=== PATIENT | male | born 1955 | race Caucasian/White ===

== ENCOUNTER 2019-04-02 08:51 | Emergency (ER) | payer MEDICARE, OTHER, SELFPAY ==
[2019-04-02 09:01] VITALS: BP 169/107; PULSE 90; RESP 24; TEMP 36.3; O2SAT 95; BMI 32.1
--- NOTE | 2019-04-02 09:01 | DI.RAD.S_ITS ---
PROCEDURE: XR RIBS RT MIN 3V W CXR 1V INDICATIONS: pain TECHNIQUE: 2 views of the right ribs were acquired, along with a single view chest. COMPARISON: [facility], , CHEST 2 VIEW, 01/02/2017, 11:09. FINDINGS: Surgical changes and devices: None. Bones and chest wall: No displaced right rib fractures or dislocations. No suspicious bony lesions. Overlying soft tissues appear unremarkable. Lungs and pleura: Interstitial prominence is identified within the lung bases, which is similar to the previous examination (left greater than right). No effusion or definite pneumothorax is appreciated.. Mediastinum: Mediastinal contours appear normal. Heart size is normal. IMPRESSION: 1. No displaced right rib fractures. 2. Bibasilar interstitial prominence may represent chronic interstitial changes. Superimposed atypical pneumonia versus pulmonary edema is unable to be excluded. Dictated by: Ayo Arellano M.D. on 04/02/2019 at 8:25 Approved by: Ayo Arellano M.D. on 04/02/2019 at 8:26
--- NOTE | 2019-04-02 09:16 | ED_ITS ---
HPI - General Adult General Chief complaint: Shortness of Breath/Dyspnea Stated complaint: fell a week ago Time Seen by Provider: 04/02/19 09:04 Source: patient Mode of arrival: Ambulatory Limitations: no limitations History of Present Illness HPI narrative: 63-year-old male here for evaluation of right lateral/anterior chest wall pain. Patient states that approximately 1 week ago he was climbing over a 1st story deck railing when he states that he lost his footing falling on his right side. Did not hit his head. Had pain immediately afterwards. Since then has had increasing pain in his right chest wall. Has been doing Tylenol and ibuprofen at home without any improvement. Worse with palpation worse with deep breath. Related Data Home Medications Medication Instructions Recorded Confirmed [refugio pond] #0 11/05/16 ascorbic acid (vitamin C) 1,000 mg PO QDAY #0 11/05/16 cyanocobalamin (vitamin B-12) 1,000 mcg PO #0 11/05/16 ibuprofen 200 mg PO PRN #0 11/05/16 Previous Rx's Medication Instructions Recorded betamethasone dipropionate 1 ju TOPICAL BID #60 gm 11/05/16 clotrimazole 1 gm TOPICAL BID #30 gm 11/05/16 tramadol [Ultram] 50 mg PO Q6H PRN #14 tab 04/02/19 Allergies Allergy/AdvReac Type Severity Reaction Status Date / Time codeine [CODEINE] Allergy Intermediate NAUSEA Verified 04/02/19 09:01 Review of Systems Constitutional Constitutional: Denies fever(s) and Denies headache(s) ENT Ears, Nose, Mouth, and Throat: Denies vertigo, Denies dizziness and Denies headache(s) Cardiovascular Cardiovascular: Reports chest pain (Right chest wall) and Denies dyspnea Respiratory Respiratory: Denies dyspnea Gastrointestinal Gastrointestinal: Denies abdominal pain, Denies nausea and Denies vomiting Musculoskeletal Comments: Right chest wall pain no right shoulder pain Integumentary/Breasts Skin/Breast: Denies lesions and Denies rash Neurologic Neurologic: Denies vertigo, Denies dizziness and Denies headache(s) Hematologic/Lymphatic Hematologic/Lymphatic: Denies easy bleeding and Denies easy bruising [facility] Medical History Patient denies medical problems (Acute) Social History lives independently: Yes Social History lives independently: Yes Exam Initial Vital Signs Initial Vital Signs: Vital Signs Temperature 97.4 F L 04/02/19 09:01 Pulse Rate 90 04/02/19 09:01 Respiratory Rate 24 04/02/19 09:01 Blood Pressure 169/107 H 04/02/19 09:01 Pulse Oximetry 95 04/02/19 09:01 Const General: cooperative, well developed and well groomed Orientation: alert, awake and oriented x3 Chest Other: Tenderness to palpation right-sided lower anterior axillary line radiating around to the front right under the right nipple line. Resp Effort & Inspection: normal respiratory effort Auscultation: clear to auscultation bilaterally Cardio Rate: regular rate Rhythm: regular rhythm Skin Lesions: no lesions Rashes: no rashes Neuro General: alert, awake and oriented x3 Cognition: normal cognition Speech: speech normal Gait: normal gait Extrem General: normal to inspection and capillary refill normal Psych Appearance: grossly normal and well kempt Course Orders Ordered: ED Orders 04/02/19 09:01 XR ribs RT min 3V w CXR1V Stat Discontinued Medications Hydrocodone Bitart/Acetaminophen (Herrin 5/325) 1 tab PO NOW ONE Stop: 04/02/19 09:19 Vital Signs Vital signs: Vital Signs - 8 hr 04/02/19 09:01 Temperature 97.4 F L Pulse Rate 90 Respiratory Rate 24 Blood Pressure 169/107 H Pulse Oximetry 95 Medical Decision Making Imaging Data X-ray ribs: Radiologist's impression: [address] [address] XRay Report Signed Patient: Zeferino Connelly MMR#: [id number] : 4Acct:[id number] Age/Sex: 63 / MDate of Service: 04/02/19 Loc: ED Accession Number: [id number] Procedure: XR ribs RT min 3V w CXR1V Ordering Provider: Reuben Guy D.O. PROCEDURE: XR RIBS RT MIN 3V W CXR 1V INDICATIONS: pain TECHNIQUE: 2 views of the right ribs were acquired, along with a single view chest. COMPARISON: [facility], [place], CHEST 2 VIEW, 01/02/2017, 11:09. FINDINGS: Surgical changes and devices: None. Bones and chest wall: No displaced right rib fractures or dislocations. No suspicious bony lesions. Overlying soft tissues appear unremarkable. Lungs and pleura: Interstitial prominence is identified within the lung bases, which is similar to the previous examination (left greater than right). No effusion or definite pneumothorax is appreciated.. Mediastinum: Mediastinal contours appear normal. Heart size is normal. IMPRESSION: 1. No displaced right rib fractures. 2. Bibasilar interstitial prominence may represent chronic interstitial changes. Superimposed atypical pneumonia versus pulmonary edema is unable to be excluded. Dictated by: Ayo Arellano M.D. on 04/02/2019 at 8:25 Approved by: Ayo Arellano M.D. on 04/02/2019 at 8:[address] [facility] Narrative Medical decision making narrative: No fractures noted on the chest x-ray however he does have pinpoint right-sided chest wall tenderness. I do suspect that there could be a nondisplaced fracture in this area. He is not in any respiratory distress. No signs of pneumonia on the x-ray. Clinically does not have pneumonia. Will send home with symptom treatment. We did discuss the importance of taking big deep breaths. We discussed return precautions and follow-up instructions. He expressed understanding and agreement with plan. Discharge Plan Departure Patient Disposition: Home Clinical Impression: Contusion of rib on right side Qualifiers: Encounter type: initial encounter Qualified Code(s): S20.211A - Contusion of right front wall of thorax, initial encounter Instructions: DI for Rib Contusion Activity Restrictions/Additional Instructions: Like we discussed here in the ER there were no signs of displaced fractures on the chest x-ray however there still could be a nondisplaced fracture in this area. Recommend you take the medications in order for you to be able to take a big deep breath which is important for you to avoid complications such as pneumonia. Contact your primary provider for follow-up. Return to the emergency department for any new or worsening symptoms Prescriptions: New tramadol [Ultram] 50 mg tablet 50 mg PO Q6H PRN (Reason: pain) Qty: 14 RF: 0 No Action ibuprofen 200 MG capsule 200 mg PO PRNQty: 0 RF: 0 ascorbic acid (vitamin C) 500 MG tablet 1,000 mg PO QDAY Qty: 0 RF: 0 cyanocobalamin (vitamin B-12) 1,000 MCG tablet extended release 1,000 mcg PO Qty: 0 RF: 0 [saw palmetto] Qty: 0 RF: 0 clotrimazole 1 % cream 1 gm Topical BID Qty: 30 RF: 0 betamethasone dipropionate 0.05 % cream 1 ju Topical BID Qty: 60 RF: 0 Referrals: Juan Pradhan MD [Primary Care Provider] -
[2019-04-02] MEDS: TRAMADOL 50 MG TABLET PO (09:49)
[2019-04-02 10:15] VITALS: BP 145/86; PULSE 75; RESP 17; O2SAT 96
[2019-04-02 10:23] VITALS: PULSE 68; RESP 16; O2SAT 97
== END 2019-04-02 10:16 | disposition home or self-care (01) ==
PROVIDERS: Emergency Provider Emergency Medicine; PCP Family Medicine
DX: S20.211A Contusion of right front wall of thorax, initial encounter (principal); W17.89XA Other fall from one level to another, initial encounter
CPT/HCPCS: 71101; 99282; 99283

== ENCOUNTER 2023-02-15 09:01 | Emergency (ER) | payer MEDICARE, OTHER, SELFPAY ==
[2023-02-15] VITALS (11 sets, daily range): BP systolic 152–209; BP diastolic 77–108; PULSE 59–77; RESP 17–26; TEMP 36.5; O2SAT 93–95; BMI 32.7
--- NOTE | 2023-02-15 09:16 | DI.RAD.S_ITS ---
PROCEDURE: XR CHEST 1V INDICATIONS: chest pain TECHNIQUE: One view of the chest was acquired. COMPARISON: [facility], CT, CHEST HI-RESOLUTION, 11/03/2012, 8:23. [facility], CR, CHEST 2 VIEW, 01/02/2017, 11:09. FINDINGS: Surgical changes and devices: None. Lungs and pleura: Chronic reticular markings are again seen in the left lung base, not significantly changed when compared to 01/02/2017. No pleural effusion or pneumothorax. Mediastinum: Mediastinal contours appear normal. Heart size is normal. Bones and chest wall: No suspicious bony lesions. Overlying soft tissues appear unremarkable. IMPRESSION: Stable chronic interstitial markings. No acute cardiopulmonary abnormality. Approved by: Ayaan Vásquez M.D. on 02/15/2023 at 9:35
[2023-02-15 09:24] LABS: Add Manual Diff / Slide Review NO; Basophils Absolute Auto 0 /uL (0-100); Basophils Percent Auto 0.2 % (0-2); Eosinophils Absolute Auto 100 /uL (0-450); Eosinophils Percent Auto 0.6 % (2-4); Hematocrit 49.6 % (41-53); Hemoglobin 16.7 g/dL (13.5-17.5); Lymphocytes Absolute Auto 3000 /uL (1100-4500); Lymphocytes Percent Auto 25.5 % (25-40); Mean Corpuscular HGB Conc 33.7 % (30-36); Mean Corpuscular Hemoglobin 31.1 PG (26-34); Mean Corpuscular Volume 92.3 fL (80-100); Monocytes Absolute Auto 1300 /uL (0-900); Monocytes Percent Auto 11.3 % (3-14); Neutrophils Absolute Auto 7400 /uL (1500-7000); Neutrophils Percent Auto 62.4 % (50-75); Platelet Count 141 X10^3/uL (150-400); Red Blood Cell Count 5.37 X10^6/uL (4.5-5.9); Red Cell Distribution Width 15.1 % (11.6-14.8); White Blood Cell Count 11.9 X10^3/uL (4.5-11.0)
[2023-02-15 09:29] LABS: INR 1.1 (0.9-1.3); Prothrombin Time 12.6 SECONDS (10.1-12.7)
[2023-02-15 09:32] LABS: PTT Partial Thromboplastin Tim 31 SECONDS (26-36)
[2023-02-15 09:34] LABS: Alanine Aminotransferase 23 IU/L (<50); Albumin 4.1 g/dL (3.5-5.0); Albumin Globulin Ratio 1.3 (1.0-2.8); Alkaline Phosphatase 78 U/L (38-126); Aspartate Aminotransferase 23 IU/L (17-59); BUN Creatinine Ratio 18.9 (6-22); Bilirubin Total 0.7 mg/dL (0.2-1.3); Blood Urea Nitrogen 17 mg/dL (9-20); Calcium 8.8 mg/dL (8.4-10.2); Carbon Dioxide 24 mmol/L (22-32); Chloride 105 mmol/L (98-107); Creatine Kinase 93 U/L (55-170); Estimated Glomerular Filt Rate > 60 mL/min (>60); Globulin 3.2 g/dL (1.7-4.1); Glucose 121 mg/dL (80-110); HEMOLYSIS < 15 (0-50); Lipase 66 U/L (23-300); Magnesium 1.9 mg/dL (1.6-2.3); Potassium 4.3 mmol/L (3.4-5.1); Sodium 137 mmol/L (137-145); Total Protein 7.3 g/dL (6.3-8.2)
--- NOTE | 2023-02-15 09:34 | ED.CHESTPAIN ---
HPI - Chest Pain General Chief Complaint: Chest Pain Stated Complaint: SOB/chest pain Time Seen by Provider: 02/15/23 09:29 Source: patient Mode of arrival: Ambulatory Limitations: no limitations Limitations: no limitations History of Present Illness HPI narrative: This is a 67-year-old with history of chronic tobacco abuse, history of elevated blood sugars who presents with increasing exertional dyspnea and fatigue particularly with hard work. 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 He states he is found that he is had less exercise tolerance over time. He denies any orthopnea. He states for the last couple days he is had chest pain that he describes as sudden sternal sort of a burning sensation without radiation. Had 1 episode of diaphoresis but otherwise no diaphoresis, no nausea or vomiting, no fevers. No nasal congestion, he is had mild cough longstanding that he describes as having clear or whitish productive sputum sometimes. He does note some increasing swelling in his ankles and feet over the past 6-9 months. Patient states no daily medications other than ibuprofen, does not see a physician regularly. Has a remote history of basket retrieval for kidney stone. No known drug allergies. Quit smoking tobacco 9 years ago smoked a pack daily for 40 years. Rare alcohol, denies any illicit. No active primary care currently. Related Data Home Medications Medication Instructions Recorded Confirmed [refugio pond] ##0 11/05/16 08/09/22 ascorbic acid (vitamin C) 500 mg 1,000 mg PO QDAY ##0 11/05/16 08/09/22 tablet cyanocobalamin (vitamin B-12) 1,000 mcg PO ##0 11/05/16 08/09/22 1,000 mcg tablet,extended release ibuprofen 200 mg capsule 200 mg PO PRN ##0 11/05/16 08/09/22 Previous Rx's Medication Instructions Recorded betamethasone dipropionate 0.05 % 1 ju topical BID ##60 11/05/16 topical cream clotrimazole 1 % topical cream 1 gm topical BID ##30 11/05/16 tramadol 50 mg tablet (Ultram) 50 mg PO Q6H PRN pain #14 tabs 04/02/19 furosemide 20 mg tablet (Lasix) 20 mg PO DAILY #7 tabs 02/15/23 furosemide 20 mg tablet (Lasix) 20 mg PO DAILY #7 tabs 02/15/23 Allergies Allergy/AdvReac Type Severity Reaction Status Date / Time codeine [CODEINE] Allergy Intermediate NAUSEA Verified 02/15/23 09:16 Review of Systems Review of Systems ROS Unobtainable: All systems reviewed & are unremarkable except as noted in HPI and below Patient History Medical History (Updated 02/15/23 @ 11:51 by Elle Boyd DO) Patient denies medical problems Social History lives independently: Yes Smoking Status: Current some day smoker Smoking Status: Current some day smoker tobacco type: vaping alcohol intake frequency: 0-2 drinks per day Substance Use Type: does not use Exam Narrative Exam Narrative: GENERAL: Alert and oriented x three, male in no acute distress. HEENT: Head normocephalic, atraumatic, EOMI, pupils reactive, face symmetric, moist mucous membranes NECK: Supple, full range of motion CARDIOVASCULAR: Regular rate and rhythm without murmurs, rubs or gallops. No JVD appreciated. Trace edema bilateral lower extremities. RESPIRATORY: Breath sounds equal bilaterally, wheezes, positive for crackles bilateral bases, no rhonchi. No tachypnea accessory muscle use. Patient's speaks in full sentences. ABDOMEN: Soft, nontender. Normoactive bowel sounds all 4 quadrants. No guarding or rebound, rigidity, no mass : No CVA tenderness EXTREMITIES: Normal range of motion, no clubbing, trace edema. Neurovascularly intact NEUROLOGICAL: Cranial nerves II through XII grossly intact. Moving all extremities SKIN: Warm, dry, no petechiae, no rashes or lesions. Initial Vital Signs Initial Vital Signs: Vital Signs Pulse Oximetry 94 02/15/23 09:06 Course Orders Ordered: ED Orders 02/15/23 11:15 Trop I [Troponin I] Stat Discontinued Medications Aspirin (Aspirin 81 Mg Chew Tab) 324 mg PO NOW ONE Stop: 02/15/23 09:17 Last Admin: 02/15/23 10:00 Dose: 324 mg Documented By: RB Furosemide (Furosemide 40 Mg/4 Ml Vial) 40 mg IV NOW ONE Stop: 02/15/23 10:11 Last Admin: 02/15/23 10:21 Dose: 40 mg Documented By: OW Vital Signs Vital signs: Vital Signs - 8 hr 02/15/23 11:30 02/15/23 11:52 02/15/23 12:08 Pulse Rate 77 76 Respiratory Rate 26 H 21 Blood Pressure 152/89 H Pulse Oximetry 93 MDM - Chest Pain Lab Data 02/15/23 09:15 02/15/23 09:15 Labs: Lab Results 02/15/23 02/15/23 02/15/23 Range/Units 09:15 09:15 09:15 WBC 11.9 H (4.5-11.0) X10^3/uL RBC 5.37 (4.5-5.9) X10^6/uL Hgb 16.7 (13.5-17.5) g/dL Hct 49.6 (41-53) % MCV 92.3 (80-100) fL MCH 31.1 (26-34) PG MCHC 33.7 (30-36) % RDW 15.1 H (11.6-14.8) % Plt Count 141 L (150-400) X10^3/uL Neut % (Auto) 62.4 (50-75) % Lymph % (Auto) 25.5 (25-40) % [place] % (Auto) 11.3 (3-14) % Eos % (Auto) 0.6 L (2-4) % Baso % (Auto) 0.2 (0-2) % Neut # (Auto) 7400 H (8703-4638) /uL Lymph # (Auto) 3000 (9288-3917) /uL [place] # (Auto) 1300 H (0-900) /uL Eos # (Auto) 100 (0-450) /uL Baso # (Auto) 0 (0-100) /uL PT 12.6 (10.1-12.7) SECONDS INR 1.1 (0.9-1.3) APTT 31 (26-36) SECONDS Sodium 137 (137-145) mmol/L Potassium 4.3 (3.4-5.1) mmol/L Chloride 105 (98-107) mmol/L Carbon Dioxide 24 (22-32) mmol/L BUN 17 (9-20) mg/dL Creatinine 0.90 (0.66-1.25) mg/dL Estimated GFR > 60 (>60) mL/min BUN/Creatinine Ratio 18.9 (6-22) Glucose 121 H (80-110) mg/dL Calcium 8.8 (8.4-10.2) mg/dL Magnesium 1.9 (1.6-2.3) mg/dL Total Bilirubin 0.7 (0.2-1.3) mg/dL AST 23 (17-59) IU/L ALT 23 (<50) IU/L Alkaline Phosphatase 78 (38-126) U/L Total Creatine Kinase 93 (55-170) U/L Troponin I < 0.012 (0.01-0.034) ng/mL NT-Pro-B Natriuret Pep (<125) pg/mL Total Protein 7.3 (6.3-8.2) g/dL Albumin 4.1 (3.5-5.0) g/dL Globulin 3.2 (1.7-4.1) g/dL Albumin/Globulin Ratio 1.3 (1.0-2.8) Lipase 66 (23-300) U/L 02/15/23 02/15/23 Range/Units 09:15 11:15 WBC (4.5-11.0) X10^3/uL RBC (4.5-5.9) X10^6/uL Hgb (13.5-17.5) g/dL Hct (41-53) % MCV (80-100) fL MCH (26-34) PG MCHC (30-36) % RDW (11.6-14.8) % Plt Count (150-400) X10^3/uL Neut % (Auto) (50-75) % Lymph % (Auto) (25-40) % [place] % (Auto) (3-14) % Eos % (Auto) (2-4) % Baso % (Auto) (0-2) % Neut # (Auto) (5823-0443) /uL Lymph # (Auto) (8845-8060) /uL [place] # (Auto) (0-900) /uL Eos # (Auto) (0-450) /uL Baso # (Auto) (0-100) /uL PT (10.1-12.7) SECONDS INR (0.9-1.3) APTT (26-36) SECONDS Sodium (137-145) mmol/L Potassium (3.4-5.1) mmol/L Chloride (98-107) mmol/L Carbon Dioxide (22-32) mmol/L BUN (9-20) mg/dL Creatinine (0.66-1.25) mg/dL Estimated GFR (>60) mL/min BUN/Creatinine Ratio (6-22) Glucose (80-110) mg/dL Calcium (8.4-10.2) mg/dL Magnesium (1.6-2.3) mg/dL Total Bilirubin (0.2-1.3) mg/dL AST (17-59) IU/L ALT (<50) IU/L Alkaline Phosphatase (38-126) U/L Total Creatine Kinase (55-170) U/L Troponin I < 0.012 (0.01-0.034) ng/mL NT-Pro-B Natriuret Pep 566 H (<125) pg/mL Total Protein (6.3-8.2) g/dL Albumin (3.5-5.0) g/dL Globulin (1.7-4.1) g/dL Albumin/Globulin Ratio (1.0-2.8) Lipase (23-300) U/L Urine Dip Bedside Urine Glucose Negative Bedside Urine Bilirubin - Negative Bedside Urine Ketone - Negative Urine Specific [place] 1.015 Bedside Urine Occult Blood - Negative Bedside Urine pH 6.0 Bedside Urine Protein - Negative Bedside Urine Urobilinogen - Negative Bedside Urine Nitrite - Negative Bedside Urine Leukocytes - Negative Esterase Imaging Data Chest x-ray: Radiologist's Impression: [address] [address] XRay Report Signed Patient: Zeferino Connelly MR#: [id number] : 1955 Acct:[id number] Age/Sex: 67 / M Date of Service: 02/15/23 Loc: ED Accession Number: [id number] ?? Procedure: XR chest 1V Ordering Provider: Elle Boyd D.O. PROCEDURE:? XR CHEST 1V ? INDICATIONS:? chest pain ? TECHNIQUE:? One view of the chest was acquired.? ? COMPARISON:? [facility], CT, CHEST HI-RESOLUTION, 11/03/2012, 8:23.? [facility], CR, CHEST 2 VIEW, 01/02/2017, 11:09. ? FINDINGS:? ? Surgical changes and devices:? None.? ? Lungs and pleura:? Chronic reticular markings are again seen in the left lung base, not significantly changed when compared to 01/02/2017.? No pleural effusion or pneumothorax. ? Mediastinum:? Mediastinal contours appear normal.? Heart size is normal.? ? Bones and chest wall:? No suspicious bony lesions.? Overlying soft tissues appear unremarkable.? ? IMPRESSION:? Stable chronic interstitial markings.? No acute cardiopulmonary abnormality. ? ? ? Approved by: Ayaan Vásquez M.D. on 02/15/2023 at 9:35? ECG Data Attestation: I personally reviewed and interpreted this ECG as follows: Prior ECG tracings: not available for review Interpretation: Sinus rhythm, right bundle-branch, left posterior fascicular. Rate of 67 CT 154 QRS of 126 and QTC 437. No priors for comparison. Repeat EKG shows sinus rhythm, right bundle and left posterior fascicular block. Rate of 74 CT 146 QRS 132 QTC 470 no acute or dynamic ST changes appreciated. MDM Narrative Medical decision making narrative: 67-year-old male presents with exertional dyspnea fatigue that has been slowly worsening over time some increasing swelling lower extremities crackles on examination 6 in CHF exacerbation. Patient has elevated blood pressure initially 209/108, no hypoxia. Patient has crackles on examination. Labs including CBC, CMP, lipase, troponin show platelets of 141 leukocytosis of 11.9, normal hemoglobin, coags are negative, electrolytes are appropriate with normal renal function LFTs. Initial troponin negative, glucose is 121. Patient's EKG shows bifascicular block. Troponin was repeated at hours along with EKG with no acute changes. BNP is mildly elevated. Patient feels improved after aspirin and Lasix. Discussed with patient he should follow up and have stress testing and ECHO for further cardiac evaluation. Suspect CHF and/or possibly some coronary artery disease. May have a little bit of stable angina he is not been having chest pain regularly but does have dyspnea with exertion. Patient felt safe for discharge today. He feels comfortable returning home. Discussed with patient need for follow-up, have him take an aspirin daily short course of Lasix and we discussed return precautions with low threshold to return. Discharge Plan Departure Patient Disposition: Home Clinical Impression: CHF (congestive heart failure) Instructions: DI for Heart Failure Activity Restrictions/Additional Instructions: Follow up with primary care for recheck and discussion about further cardiac workup. Please call to set up an appointment. I do think you would benefit from a stress test and echo to fully evaluate your heart. I would recommend aspirin 81 mg daily. You may take Lasix 1 tablet daily until gone. Prescription sent to [facility]. Please return for new or worsening chest pain, shortness of breath, lightheadedness or passing out, increasing swelling in her extremities or other new or concerning changes. Prescriptions: New furosemide [Lasix] 20 mg tablet 20 mg PO DAILY Qty: 7 0RF furosemide [Lasix] 20 mg tablet 20 mg PO DAILY Qty: 7 0RF No Action ibuprofen 200 MG capsule 200 mg PO PRNQty: 0 ascorbic acid (vitamin C) 500 MG tablet 1,000 mg PO QDAY Qty: 0 cyanocobalamin (vitamin B-12) 1,000 MCG tablet extended release 1,000 mcg PO Qty: 0 [saw palmetto] Qty: 0 clotrimazole 1 % cream 1 gm Topical BID Qty: 30 0RF betamethasone dipropionate 0.05 % cream 1 ju Topical BID Qty: 60 0RF tramadol [Ultram] 50 mg tablet 50 mg PO Q6H PRN (Reason: pain) Qty: 14 0RF Referrals: Miscellaneous,MD Ely [Primary Care Provider] - Priyank Lechuga MD [Physician] - Felicia Marin DO [Physician] - Stand Alone Forms: Patient Portal/API
[2023-02-15 09:46] LABS: Troponin I < 0.012 ng/mL (0.01-0.034)
[2023-02-15 10:00] LABS: NT-proBNP (BNP-Adult 18+) 566 pg/mL (<125)
[2023-02-15] MEDS: ASPIRIN 81 MG CHEW TAB 324 MG PO (10:00)
[2023-02-15] MEDS: FUROSEMIDE 40 MG/4 ML VIAL IV (10:21)
[2023-02-15 11:44] LABS: Troponin I < 0.012 ng/mL (0.01-0.034)
== END 2023-02-15 12:16 | disposition home or self-care (01) ==
PROVIDERS: Emergency Provider Emergency Medicine
DX: I50.9 Heart failure, unspecified (principal); R07.9 Chest pain, unspecified
CPT/HCPCS: 36415; 71045; 80053; 81003; 82550; 83690; 83735; 83880; 84484; 85025; 85610; 85730; 93005; 93010; 96374; 99284; J1940

== ENCOUNTER → 2023-02-28 09:40 | Outpatient (CLI) | payer MEDICARE, OTHER, SELFPAY ==
[2023-02-28 10:42] LABS: Add Manual Diff / Slide Review NO; Basophils Absolute Auto 0 /uL (0-100); Basophils Percent Auto 0.2 % (0-2); Eosinophils Absolute Auto 200 /uL (0-450); Eosinophils Percent Auto 1.8 % (2-4); Hematocrit 50.2 % (41-53); Hemoglobin 17.1 g/dL (13.5-17.5); Lymphocytes Absolute Auto 2700 /uL (1100-4500); Mean Corpuscular HGB Conc 34.1 % (30-36); Mean Corpuscular Hemoglobin 31.3 PG (26-34); Mean Corpuscular Volume 91.7 fL (80-100); Monocytes Absolute Auto 900 /uL (0-900); Monocytes Percent Auto 9.7 % (3-14); Neutrophils Absolute Auto 5400 /uL (1500-7000); Neutrophils Percent Auto 59.3 % (50-75); Platelet Count 181 X10^3/uL (150-400); Red Blood Cell Count 5.47 X10^6/uL (4.5-5.9); Red Cell Distribution Width 14.9 % (11.6-14.8); White Blood Cell Count 9.1 X10^3/uL (4.5-11.0)
[2023-02-28 11:07] LABS: Alanine Aminotransferase 27 IU/L (<50); Albumin 4.1 g/dL (3.5-5.0); Albumin Globulin Ratio 1.3 (1.0-2.8); Alkaline Phosphatase 79 U/L (38-126); Aspartate Aminotransferase 26 IU/L (17-59); BUN Creatinine Ratio 17.9 (6-22); Bilirubin Total 0.6 mg/dL (0.2-1.3); Blood Urea Nitrogen 17 mg/dL (9-20); Calcium 9.3 mg/dL (8.4-10.2); Carbon Dioxide 26 mmol/L (22-32); Chloride 103 mmol/L (98-107); Cholesterol 240 mg/dL (140-199); Estimated Glomerular Filt Rate > 60 mL/min (>60); Globulin 3.2 g/dL (1.7-4.1); Glucose 122 mg/dL (80-110); HDL Cholesterol 30 mg/dL (40-60); HEMOLYSIS < 15 (0-50); LDL Cholesterol Calculated 147 mg/dL (<100); Potassium 4.2 mmol/L (3.4-5.1); Sodium 137 mmol/L (137-145); Total Protein 7.3 g/dL (6.3-8.2); Triglycerides 313 mg/dL (35-150)
[2023-02-28 11:38] LABS: Prostate Specific Antigen 2.93 ng/mL (0.10-4.00)
[2023-02-28 12:09] LABS: TSH w/ Reflex to FT4 2.15 uIU/mL (0.47-4.68)
[2023-02-28 16:23] LABS: Hep C Virus Ab w/Reflex Quant NEGATIVE s/c (NEGATIVE)
== END ==
PROVIDERS: PCP Nurse Practitioner Family; Referring Provider Nurse Practitioner Family; Visit Provider Nurse Practitioner Family
DX: E78.5 Hyperlipidemia, unspecified (principal); N40.1 Benign prostatic hyperplasia with lower urinary tract symptoms; R03.0 Elevated blood-pressure reading, without diagnosis of hypertension; Z11.59 Encounter for screening for other viral diseases
CPT/HCPCS: 36415; 80053; 80061; 84153; 84443; 85025; 86803

== ENCOUNTER → 2023-03-12 09:56 | Outpatient (CLI) | payer MEDICARE, OTHER, SELFPAY ==
--- NOTE | 2023-03-12 09:58 | DI.CT.S_ITS ---
PROCEDURE: CT ABDOMEN PELVIS W CON INDICATIONS: Hx of nicotine dependence / Abdominal distension TECHNIQUE: After the administration of oral and IV contrast, axial sections were acquired from the lung bases to the pubic symphysis. Coronal and sagittal reformats were performed. For radiation dose reduction, the following was used: automated exposure control, adjustment of mA and/or kV according to patient size. COMPARISON: None. FINDINGS: Image quality: Excellent. Lung bases: Emphysematous changes are noted at bilateral lung bases with suggestion of interstitial pulmonary fibrosis. Heart: Heart size is normal, no pericardial effusion. ABDOMEN: Liver: Liver is normal in size. Moderate hepatic steatosis is seen, no discrete hepatic lesion. Gallbladder: Gallbladder is within normal limits. Biliary ducts: Unremarkable. Pancreas: Unremarkable. Spleen: Unremarkable. Adrenal Glands: Unremarkable. Kidneys and Ureters: Punctate bilateral nonobstructing renal calculi are seen. No hydronephrosis or hydroureter.. Stomach and Bowel: There is no bowel obstruction. No abnormal bowel wall thickening or mesenteric fat stranding. Sigmoid diverticulosis is seen without sigmoid colon wall thickening or pericolonic fat stranding. No abscess collection. Peritoneum: No abnormal intraperitoneal fluid. No free air. Ventral Wall: Small umbilical hernia is seen containing fat only. Abdominal Nodes: No retroperitoneal or mesenteric adenopathy by size criteria. Vessels: Moderate atherosclerotic calcifications are noted in abdominal aorta. There is fusiform infrarenal abdominal aortic aneurysm involving distal 10 cm segment of abdominal aorta extending to the level of bifurcation with significant thrombus formation within aneurysmal sac. Patent aortic lumen measures up to 2.3 cm in AP diameter. Largest AP diameter of infrarenal abdominal aorta is 6.5 cm. PELVIS: Pelvic Organs: Unremarkable. Bladder: Unremarkable. Pelvic Nodes: No enlarged lymph nodes. Miscellaneous: No inguinal hernias are seen. Bones: No suspicious bony lesions. No acute vertebral body compression fracture. IMPRESSION: 1. Fusiform infrarenal abdominal aortic aneurysm involving distal 10 cm segment of infrarenal abdominal aorta and measures up to 6.5 cm in largest AP diameter. Significant thrombus formation within aneurysmal sac with patent abdominal aortic lumen measures up to 2.3 cm in largest AP diameter. Moderate atherosclerotic disease in abdominal aorta and bilateral iliac arteries. 2. No bowel obstruction or abnormal bowel wall thickening. Sigmoid diverticulosis without CT evidence of acute diverticulitis. No abscess collection. No free fluid or free air. 3. Hepatic steatosis, no discrete hepatic lesion. 4. Punctate nonobstructing stones in bilateral kidneys. No hydronephrosis or hydroureter. Dictated by: Carlos Nicole M.D. on 03/12/2023 at 16:37 Approved by: Carlos Nicole M.D. on 03/12/2023 at 16:41
--- NOTE | 2023-03-12 11:36 | DI.CT.S_ITS ---
PROCEDURE: CT LUNG LOW DOSE SCREENING INDICATIONS: Hx of nicotine dependence / Abdominal distension TECHNIQUE: Noncontrast 2.0-2.5 mm thick sections acquired from the pulmonary apices to the posterior costophrenic angles. 7 mm thick axial MIP, and 5 mm coronal and sagittal reformats were then acquired. A low radiation dose technique was utilized. COMPARISON: None. FINDINGS: Image quality: Diagnostic, given the low radiation dose technique. Lungs and pleura: There is moderate centrilobular emphysema. Extensive interstitial reticular thickening in periphery of bilateral lung gonzalez are seen suggestive of interstitial pulmonary fibrosis. No suspicious pulmonary nodule or mass. No pleural effusion or pneumothorax. Central and peripheral airway is patent. Mediastinum: Heart size is normal. No pericardial effusion. No mediastinal adenopathy by size criteria. [id number] atherosclerotic calcifications are seen in coronary vessels and thoracic aorta. Thoracic aorta and central pulmonary arteries are normal in size. Esophagus is normal in caliber. There is a small hiatal hernia. Bones and chest wall: No suspicious bony lesions. No vertebral body compression fractures. Degenerative disc disease throughout thoracic spine is seen. No axillary or supraclavicular adenopathy by size criteria. Thyroid gland is within normal limits. Abdomen: Visualized upper abdomen solid organs and bowel loops appear normal in the absence of contrast. IMPRESSION: 1. Moderate centrilobular emphysema and suggestion of interstitial pulmonary fibrosis. No suspicious pulmonary nodule or mass is seen. LUNG-RADS 1, annual low-dose screening CT chest follow-up is recommended as long as patient meets the criteria. 2. [id number]-ra-[id number] atherosclerotic disease in coronary vessels and thoracic aorta. Small hiatal hernia. Dictated by: Carlos Nicole M.D. on 03/12/2023 at 16:24 Approved by: Carlos Nicole M.D. on 03/12/2023 at 16:36
== END ==
PROVIDERS: PCP Nurse Practitioner Family; Referring Provider Nurse Practitioner Family; Visit Provider Nurse Practitioner Family
DX: Z12.2 Encounter for screening for malignant neoplasm of respiratory organs (principal); R14.0 Abdominal distension (gaseous); J43.2 Centrilobular emphysema; Z87.891 Personal history of nicotine dependence; I25.10 Atherosclerotic heart disease of native coronary artery without angina pectoris; I70.0 Atherosclerosis of aorta; K44.9 Diaphragmatic hernia without obstruction or gangrene; M51.34 Other intervertebral disc degeneration, thoracic region
CPT/HCPCS: 71271; 74177

== ENCOUNTER → 2023-06-13 09:05 | Outpatient (CLI) | payer MEDICARE, OTHER, SELFPAY ==
--- NOTE | 2023-06-13 | DI.RAD.S_ITS ---
PROCEDURE: XR KNEE RT 3V INDICATIONS: KNEE PAIN TECHNIQUE: 3 views of the knee were acquired. COMPARISON: [facility], CR, XR KNEE 4+ VIEWS BILATERAL, 03/24/2020, 12:15. FINDINGS: Bones: No fractures or dislocations. No suspicious bony lesions. Redemonstration of moderate tricompartmental degenerative changes of the right knee with medial femorotibial compartment joint space narrowing. Soft tissues: No substantial joint effusion. No suspicious soft tissue calcifications. IMPRESSION: No acute bony abnormality or significant effusion. Moderate tricompartmental degenerative changes most pronounced in the medial femorotibial compartment. Dictated by: Yves Flores M.D. on 06/13/2023 at 10:36 Approved by: Yves Flores M.D. on 06/13/2023 at 10:39
[2023-06-13 10:17] LABS: Add Manual Diff / Slide Review NO; Basophils Absolute Auto 0 /uL (0-100); Basophils Percent Auto 0.4 % (0-2); Eosinophils Absolute Auto 100 /uL (0-450); Eosinophils Percent Auto 1.6 % (2-4); Hematocrit 47.1 % (41-53); Hemoglobin 16.2 g/dL (13.5-17.5); Lymphocytes Absolute Auto 3000 /uL (1100-4500); Lymphocytes Percent Auto 31.6 % (25-40); Mean Corpuscular HGB Conc 34.4 % (30-36); Mean Corpuscular Hemoglobin 31.5 PG (26-34); Mean Corpuscular Volume 91.5 fL (80-100); Monocytes Absolute Auto 900 /uL (0-900); Monocytes Percent Auto 9.8 % (3-14); Neutrophils Absolute Auto 5300 /uL (1500-7000); Neutrophils Percent Auto 56.6 % (50-75); Platelet Count 161 X10^3/uL (150-400); Red Blood Cell Count 5.15 X10^6/uL (4.5-5.9); Red Cell Distribution Width 15.2 % (11.6-14.8); White Blood Cell Count 9.4 X10^3/uL (4.5-11.0)
[2023-06-13 10:36] LABS: Alanine Aminotransferase 20 IU/L (<50); Albumin Globulin Ratio 1.5 (1.0-2.8); Alkaline Phosphatase 64 U/L (38-126); Aspartate Aminotransferase 21 IU/L (17-59); BUN Creatinine Ratio 21.2 (6-22); Bilirubin Total 0.6 mg/dL (0.2-1.3); Blood Urea Nitrogen 21 mg/dL (9-20); Calcium 9.7 mg/dL (8.4-10.2); Carbon Dioxide 23 mmol/L (22-32); Chloride 101 mmol/L (98-107); Estimated Glomerular Filt Rate > 60 mL/min (>60); Globulin 2.7 g/dL (1.7-4.1); Glucose 175 mg/dL (80-110); HEMOLYSIS < 15 (0-50); Potassium 4.6 mmol/L (3.4-5.1); Sodium 134 mmol/L (137-145); Total Protein 6.7 g/dL (6.3-8.2)
== END ==
PROVIDERS: PCP Nurse Practitioner Family; Referring Provider Nurse Practitioner Family; Visit Provider Nurse Practitioner Family
DX: R53.83 Other fatigue (principal); M25.561 Pain in right knee
CPT/HCPCS: 36415; 73562; 80053; 85025

== ENCOUNTER → 2023-06-21 11:55 | Outpatient (CLI) | payer MEDICARE, OTHER, SELFPAY | PROVIDERS: PCP Nurse Practitioner Family; Referring Provider Nurse Practitioner Family; Visit Provider Nurse Practitioner Family | DX: R06.02 Shortness of breath (principal); Z87.891 Personal history of nicotine dependence | CPT/HCPCS: 94060; 94726; 94729 ==

== ENCOUNTER → 2023-09-19 12:29 | Outpatient (CLI) | payer MEDICARE, OTHER, SELFPAY ==
[2023-09-19 13:14] LABS: Add Manual Diff / Slide Review NO; Basophils Absolute Auto 0 /uL (0-100); Basophils Percent Auto 0.2 % (0-2); Eosinophils Absolute Auto 200 /uL (0-450); Eosinophils Percent Auto 2.2 % (2-4); Hematocrit 47.6 % (41-53); Hemoglobin 16.1 g/dL (13.5-17.5); Lymphocytes Absolute Auto 3300 /uL (1100-4500); Lymphocytes Percent Auto 34.5 % (25-40); Mean Corpuscular HGB Conc 33.7 % (30-36); Mean Corpuscular Hemoglobin 31.3 PG (26-34); Mean Corpuscular Volume 92.8 fL (80-100); Monocytes Absolute Auto 1000 /uL (0-900); Monocytes Percent Auto 10.4 % (3-14); Neutrophils Absolute Auto 5100 /uL (1500-7000); Neutrophils Percent Auto 52.7 % (50-75); Platelet Count 162 X10^3/uL (150-400); Red Blood Cell Count 5.13 X10^6/uL (4.5-5.9); Red Cell Distribution Width 14.9 % (11.6-14.8); White Blood Cell Count 9.6 X10^3/uL (4.5-11.0)
[2023-09-19 13:36] LABS: Alanine Aminotransferase 17 IU/L (<50); Alkaline Phosphatase 58 U/L (38-126); Aspartate Aminotransferase 19 IU/L (17-59); BUN Creatinine Ratio 23.5 (6-22); Bilirubin Total 0.6 mg/dL (0.2-1.3); Blood Urea Nitrogen 23 mg/dL (9-20); Calcium 9.5 mg/dL (8.4-10.2); Carbon Dioxide 28 mmol/L (22-32); Chloride 105 mmol/L (98-107); Estimated Glomerular Filt Rate > 60 mL/min (>60); Glucose 135 mg/dL (80-110); HEMOLYSIS < 15 (0-50); Potassium 4.3 mmol/L (3.4-5.1); Sodium 136 mmol/L (137-145); Total Protein 7.3 g/dL (6.3-8.2)
[2023-09-19 14:44] LABS: Albumin 3.9 g/dL (3.5-5.0); Albumin Globulin Ratio 1.1 (1.0-2.8); Globulin 3.4 g/dL (1.7-4.1)
== END ==
LOC: LAB 12:31
PROVIDERS: PCP Nurse Practitioner Family; Referring Provider Nurse Practitioner Family; Visit Provider Nurse Practitioner Family
DX: R53.83 Other fatigue (principal)
CPT/HCPCS: 36415; 80053; 85025

== ENCOUNTER 2024-02-16 08:21 | Emergency (ER) | payer MEDICARE, OTHER, SELFPAY ==
[2024-02-16] VITALS (8 sets, daily range): BP systolic 154–192; BP diastolic 72–86; PULSE 44–53; RESP 12–20; TEMP 36.6; O2SAT 94–97; BMI 32.4
--- NOTE | 2024-02-16 08:42 | DI.RAD.S_ITS ---
PROCEDURE: XR CHEST 1V INDICATIONS: Shortness of breath TECHNIQUE: One view of the chest was acquired. COMPARISON: [facility], , XR CHEST 1V, 02/15/2023, 9:19. FINDINGS: Surgical changes and devices: None. Lungs and pleura: Chronic interstitial articulations are again seen most prominent in the left lower lung zone. No new consolidation. No pleural effusions or pneumothorax. Mediastinum: Mediastinal contours appear normal. Heart size is normal. Bones and chest wall: No suspicious bony lesions. Overlying soft tissues appear unremarkable. IMPRESSION: No acute cardiopulmonary abnormality is seen. Approved by: Ayaan Vásquez M.D. on 02/16/2024 at 9:10
--- NOTE | 2024-02-16 08:44 | EKG_ITS ---
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
--- NOTE | 2024-02-16 08:52 | ED.GENADULT ---
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 He reports that he saw his doctor last week he was having side effects from his spironolactone making has nipples hard so he stopped taking it. This morning he felt like he was having a little chest discomfort checked his blood pressure it was in the 200s. He took his losartan in his blood pressure has come down to 192/86 s overall feeling much better. He reports he is continuing to take his potassium. Today's any abdominal pain nausea vomiting fever or chills. Related Data Home Medications Medication Instructions Recorded Confirmed [[place]] ##0 11/05/16 08/09/22 ascorbic acid (vitamin C) 500 mg 1,000 mg PO QDAY ##0 11/05/16 08/09/22 tablet cyanocobalamin (vitamin B-12) 1,000 mcg PO ##0 11/05/16 08/09/22 1,000 mcg tablet,extended release ibuprofen 200 mg capsule 200 mg PO PRN ##0 11/05/16 08/09/22 Previous Rx's Medication Instructions Recorded betamethasone dipropionate 0.05 % 1 ju topical BID ##60 11/05/16 topical cream clotrimazole 1 % topical cream 1 gm topical BID ##30 11/05/16 tramadol 50 mg tablet (Ultram) 50 mg PO Q6H PRN pain #14 tabs 04/02/19 furosemide 20 mg tablet (Lasix) 20 mg PO DAILY #7 tabs 02/15/23 furosemide 20 mg tablet (Lasix) 20 mg PO DAILY #7 tabs 02/15/23 losartan 50 mg tablet 75 mg (1.5 x 50 mg) PO DAILY #30 02/16/24 tabs Allergies Allergy/AdvReac Type Severity Reaction Status Date / Time codeine [CODEINE] Allergy Intermediate NAUSEA Verified 02/15/23 09:16 Patient History Medical History (Updated 02/16/24 @ 09:57 by Birgit Conrad DO) Patient denies medical problems Social History lives independently: Yes Smoking Status: Former smoker Smoking Status: Former smoker tobacco type: vaping alcohol intake frequency: 0-2 drinks per day Substance Use Type: does not use Exam Initial Vital Signs Initial Vital Signs: Vital Signs Pulse Rate 53 L 02/16/24 08:28 Blood Pressure 192/86 H 02/16/24 08:28 Pulse Oximetry 97 02/16/24 08:28 GENERAL: Alert pleasant 68-year-old and in no acute distress. HEENT: Head atraumatic,EOMI, pupils reactive, face symmetric, moist mucous membranes CARDIOVASCULAR: Regular rate and rhythm without murmurs, rubs or gallops. RESPIRATORY: Breath sounds equal bilaterally, no wheezes rales or rhonchi. ABDOMEN: Soft, nontender. Normoactive bowel sounds all 4 quadrants. No guarding or rebound. No pulsatile masses EXTREMITIES: Normal range of motion, no clubbing or edema. Neurovascularly intact NEUROLOGICAL: Alert and oriented x4.Normal gait and speech. Cranial nerves II through XII grossly intact. SKIN: Warm, dry, no laceration, no petechiae, no rashes or lesions. Course Orders Ordered: ED Orders 02/16/24 08:42 XR chest 1V Stat EKG-12 Lead Stat Measure peak expiratory flow ONCE RT Consult Eval and Treat NOW 02/16/24 08:49 Complete Blood Count AUTO DIFF Stat Comprehensive Metabolic Panel Stat Lactate (Lactic Acid) Stat NT-proBNP (BNP-Adult 18+) Stat Prothrombin Time INR Stat Troponin I Stat Vital Signs Vital signs: Vital Signs - 8 hr 02/16/24 08:28 02/16/24 08:28 02/16/24 08:30 Temperature Pulse Rate 53 L Respiratory Rate Blood Pressure 192/86 H 184/72 H Pulse Oximetry 97 Oxygen Delivery Method 02/16/24 08:30 02/16/24 08:35 02/16/24 09:00 Temperature 97.9 F Pulse Rate 52 L 48 L 45 L Respiratory Rate 18 20 16 Blood Pressure 192/86 H Pulse Oximetry 97 97 96 Oxygen Delivery Method Room Air 02/16/24 09:01 02/16/24 09:01 02/16/24 09:30 Temperature Pulse Rate 45 L 45 L Respiratory Rate 15 15 Blood Pressure 167/77 H Pulse Oximetry 96 96 Oxygen Delivery Method 02/16/24 09:31 02/16/24 09:31 02/16/24 10:00 Temperature Pulse Rate 44 L Respiratory Rate 12 Blood Pressure 154/79 H 165/84 H Pulse Oximetry 94 Oxygen Delivery Method 02/16/24 10:00 Temperature Pulse Rate 47 L Respiratory Rate 19 Blood Pressure Pulse Oximetry 96 Oxygen Delivery Method Medical Decision Making Lab Data 02/16/24 08:49 02/16/24 08:49 Labs: Lab Results 02/16/24 Range/Units 08:49 WBC 7.7 (4.5-11.0) X10^3/uL RBC 5.11 (4.5-5.9) X10^6/uL Hgb 16.2 (13.5-17.5) g/dL Hct 47.7 (41-53) % MCV 93.3 (80-100) fL MCH 31.6 (26-34) PG MCHC 33.9 (30-36) % RDW 15.8 H (11.6-14.8) % Plt Count 135 L (150-400) X10^3/uL Neut % (Auto) 47.5 L (50-75) % Lymph % (Auto) 38.9 (25-40) % [place] % (Auto) 11.1 (3-14) % Eos % (Auto) 2.1 (2-4) % Baso % (Auto) 0.4 (0-2) % Neut # (Auto) 3700 (0621-1412) /uL Lymph # (Auto) 3000 (6630-9456) /uL [place] # (Auto) 900 (0-900) /uL Eos # (Auto) 200 (0-450) /uL Baso # (Auto) 0 (0-100) /uL PT 12.5 (9.4-12.5) SECONDS INR 1.1 (0.9-1.3) Sodium 138 (137-145) mmol/L Potassium 5.2 H (3.4-5.1) mmol/L Chloride 109 H (98-107) mmol/L Carbon Dioxide 22 (22-32) mmol/L BUN 17 (9-20) mg/dL Creatinine 0.89 (0.66-1.25) mg/dL Estimated GFR > 60 (>60) mL/min BUN/Creatinine Ratio 19.1 (6-22) Glucose 122 H (80-110) mg/dL Lactate 1.2 (0.7-2.1) mmol/L Calcium 9.2 (8.4-10.2) mg/dL Total Bilirubin 0.6 (0.2-1.3) mg/dL AST 27 (17-59) IU/L ALT 24 (<50) IU/L Alkaline Phosphatase 68 (38-126) U/L Troponin I < 0.012 (0.01-0.034) ng/mL NT-Pro-B Natriuret Pep 92 (<125) pg/mL Total Protein 6.9 (6.3-8.2) g/dL Albumin 4.1 (3.5-5.0) g/dL Globulin 2.8 (1.7-4.1) g/dL Albumin/Globulin Ratio 1.5 (1.0-2.8) Imaging Data Chest x-ray: Radiologist's Impression: PROCEDURE: XR CHEST 1V INDICATIONS: Shortness of breath TECHNIQUE: One view of the chest was acquired. COMPARISON: [facility], , XR CHEST 1V, 02/15/2023, 9:19. FINDINGS: Surgical changes and devices: None. Lungs and pleura: Chronic interstitial articulations are again seen most prominent in the left lower lung zone. No new consolidation. No pleural effusions or pneumothorax. Mediastinum: Mediastinal contours appear normal. Heart size is normal. Bones and chest wall: No suspicious bony lesions. Overlying soft tissues appear unremarkable. IMPRESSION: No acute cardiopulmonary abnormality is seen. Approved by: Ayaan Vásquez M.D. on 02/16/2024 at 9:10 ECG Data Attestation: I personally reviewed and interpreted this ECG as follows: Prior ECG tracings: available for review Interpretation: Normal sinus rhythm rate 47 ME interval 134 QRS 130 2q DC 408 right bundle-branch block noted significant T-wave low voltage noted no ST changes, similar to prior MDM Narrative Medical decision making narrative: Patient is 68-year-old male history of hypertension presenting today with hypertension. He was just taken off his spironolactone he is continue to take his potassium. Blood pressure has actually come down somewhat with any sort of intervention. Blood work has been reviewed he has no evidence of end-organ damage his troponin is negative. EKG has been reviewed without any sort of ischemia or evidence of peaked T-waves Potassium is noted to be 5.2 not critical but mildly elevated. Encouraged him to stop taking his potassium and have it rechecked. Chest x-ray is also reviewed and negative for any acute cardiopulmonary process At this time encourage patient to have calcium rechecked if giving him you prescription for losartan without potassium. Blood pressures come down into the 50s without any sort of intervention he is overall feeling better. No evidence of end-organ damage or ischemia. Discharge Plan Departure Patient Disposition: Home Clinical Impression: Hypertension, Acute hyperkalemia Instructions: DI for High Blood Pressure Activity Restrictions/Additional Instructions: *You have been diagnosed with hypertension hyperkalemia *What to do: Potassium is 5.2 today. I do recommend that you stop taking your potassium chloride. Please have your potassium rechecked later this week. You may require another blood pressure medication. I recommend that you check your blood pressure 1 to 2 times daily record it and talk with your primary care provider or your supervisor burling and joining regards to management *Continue to take medications as directed Stop taking Losartan daily with potassium I sent in new prescription of losartan without potassium *Follow up with your primary care provider in 2-3 days or call [phone] *Return to ER if you should have increasing headache chest pain shortness of breath or any new, worsening or concerning symptoms Prescriptions: New losartan 50 mg tablet 75 mg PO DAILY Qty: 30 0RF No Action ibuprofen 200 MG capsule 200 mg PO PRNQty: 0 ascorbic acid (vitamin C) 500 MG tablet 1,000 mg PO QDAY Qty: 0 cyanocobalamin (vitamin B-12) 1,000 MCG tablet extended release 1,000 mcg PO Qty: 0 [saw palmetto] Qty: 0 clotrimazole 1 % cream 1 gm Topical BID Qty: 30 0RF betamethasone dipropionate 0.05 % cream 1 ju Topical BID Qty: 60 0RF tramadol [Ultram] 50 mg tablet 50 mg PO Q6H PRN (Reason: pain) Qty: 14 0RF furosemide [Lasix] 20 mg tablet 20 mg PO DAILY Qty: 7 0RF furosemide [Lasix] 20 mg tablet 20 mg PO DAILY Qty: 7 0RF Referrals: Darcie Carolina ARNP, RN [Primary Care Provider] - Stand Alone Forms: Patient Portal/API
--- NOTE | 2024-02-16 08:55 | PC.NURSE ---
Pt states he has consistently been taking BP meds; however has stopped his diuretic d/t feeling pain in [his] nipples. Pt states he is not a fan of taking medicine and has tried holistic approaches to help lower his bp. Pt endorses swelling at his ankles -- left worse than right-- and mild sob consistently. Pt denies CP except for when his bp was 200+ sys at home he said his chest ached. Pt currently denies CP.
[2024-02-16 08:59] LABS: Add Manual Diff / Slide Review NO; Basophils Absolute Auto 0 /uL (0-100); Basophils Percent Auto 0.4 % (0-2); Eosinophils Absolute Auto 200 /uL (0-450); Eosinophils Percent Auto 2.1 % (2-4); Hematocrit 47.7 % (41-53); Hemoglobin 16.2 g/dL (13.5-17.5); Lymphocytes Absolute Auto 3000 /uL (1100-4500); Lymphocytes Percent Auto 38.9 % (25-40); Mean Corpuscular HGB Conc 33.9 % (30-36); Mean Corpuscular Hemoglobin 31.6 PG (26-34); Mean Corpuscular Volume 93.3 fL (80-100); Monocytes Absolute Auto 900 /uL (0-900); Monocytes Percent Auto 11.1 % (3-14); Neutrophils Absolute Auto 3700 /uL (1500-7000); Neutrophils Percent Auto 47.5 % (50-75); Platelet Count 135 X10^3/uL (150-400); Red Blood Cell Count 5.11 X10^6/uL (4.5-5.9); Red Cell Distribution Width 15.8 % (11.6-14.8); White Blood Cell Count 7.7 X10^3/uL (4.5-11.0)
[2024-02-16 09:05] LABS: INR 1.1 (0.9-1.3); Prothrombin Time 12.5 SECONDS (9.4-12.5)
[2024-02-16 09:12] LABS: Alanine Aminotransferase 24 IU/L (<50); Albumin 4.1 g/dL (3.5-5.0); Albumin Globulin Ratio 1.5 (1.0-2.8); Alkaline Phosphatase 68 U/L (38-126); Aspartate Aminotransferase 27 IU/L (17-59); BUN Creatinine Ratio 19.1 (6-22); Bilirubin Total 0.6 mg/dL (0.2-1.3); Blood Urea Nitrogen 17 mg/dL (9-20); Calcium 9.2 mg/dL (8.4-10.2); Carbon Dioxide 22 mmol/L (22-32); Chloride 109 mmol/L (98-107); Estimated Glomerular Filt Rate > 60 mL/min (>60); Globulin 2.8 g/dL (1.7-4.1); Glucose 122 mg/dL (80-110); HEMOLYSIS < 15 (0-50); Lactate (Lactic Acid) 1.2 mmol/L (0.7-2.1); Potassium 5.2 mmol/L (3.4-5.1); Sodium 138 mmol/L (137-145); Total Protein 6.9 g/dL (6.3-8.2)
[2024-02-16 09:24] LABS: NT-proBNP (BNP-Adult 18+) 92 pg/mL (<125); Troponin I < 0.012 ng/mL (0.01-0.034)
== END 2024-02-16 10:18 | disposition home or self-care (01) ==
PROVIDERS: Emergency Provider Emergency Medicine; PCP Nurse Practitioner Family
DX: I10 Essential (primary) hypertension (principal); E87.5 Hyperkalemia; R06.02 Shortness of breath
CPT/HCPCS: 71045; 80053; 83605; 83880; 84484; 85025; 85610; 93005; 99283; 99284

== ENCOUNTER → 2024-03-04 08:46 | Outpatient (CLI) | payer MEDICARE, OTHER, SELFPAY ==
[2024-03-04 09:43] LABS: BUN Creatinine Ratio 21.1 (6-22); Blood Urea Nitrogen 19 mg/dL (9-20); Calcium 9.2 mg/dL (8.4-10.2); Carbon Dioxide 23 mmol/L (22-32); Chloride 105 mmol/L (98-107); Estimated Glomerular Filt Rate > 60 mL/min (>60); Glucose 189 mg/dL (80-110); HEMOLYSIS < 15 (0-50); Potassium 4.3 mmol/L (3.4-5.1); Sodium 137 mmol/L (137-145)
== END ==
PROVIDERS: PCP Nurse Practitioner Family; Referring Provider Nurse Practitioner Family; Visit Provider Nurse Practitioner Family
DX: I10 Essential (primary) hypertension (principal)
CPT/HCPCS: 36415; 80048

== ENCOUNTER → 2024-07-07 09:35 | Outpatient (CLI) | payer MEDICARE, OTHER, SELFPAY ==
--- NOTE | 2024-07-07 09:45 | DI.RAD.S_ITS ---
PROCEDURE: XR CHEST 2V INDICATIONS: Cough TECHNIQUE: 2 views of the chest were acquired. COMPARISON: [facility], CR, XR CHEST 1V, 02/16/2024, 8:40. [facility], CR, XR CHEST 1V, 02/15/2023, 9:19. FINDINGS: Surgical changes and devices: None. Lungs and pleura: Coarse bilateral lung interstitial thickening. Patchy opacities in the bilateral lung bases. No pleural effusions or pneumothorax. Mediastinum: Mediastinal contours are normal. Heart size is normal. Bones and chest wall: No suspicious bony abnormalities. Soft tissues appear unremarkable. IMPRESSION: Coarse bilateral lung interstitial thickening which could represent chronic interstitial lung disease and/or atypical pneumonia. Patchy bibasilar atelectasis or pneumonia. Dictated by: Lennie Morejon MD, PhD on 07/07/2024 at 10:15 Approved by: Lennie Morejon MD, PhD on 07/07/2024 at 10:17
[2024-07-07 10:25] LABS: COVID-19 CEPHEID 4-PLEX PCR Negative (Negative); Influenza A - CEPHEID Flu A NEGATIVE (NEGATIVE); Influenza B - CEPHEID Flu B NEGATIVE (NEGATIVE); Respiratory Syncytial Virus Negative (Negative)
== END ==
PROVIDERS: PCP Nurse Practitioner Family; Referring Provider Nurse Practitioner Family; Visit Provider Nurse Practitioner Family
DX: R05.1 Acute cough (principal); R05.9 Cough, unspecified
CPT/HCPCS: 0241U; 71046

== ENCOUNTER → 2024-12-21 09:56 | Outpatient (CLI) | payer MEDICARE, OTHER, SELFPAY ==
--- NOTE | 2024-12-21 09:59 | DI.RAD.S_ITS ---
PROCEDURE: XR KNEE RT 3V INDICATIONS: R KNEE PAIN TECHNIQUE: 3 views of the knee were acquired. COMPARISON: [facility], , XR KNEE RT 3V, 06/13/2023, 9:08. FINDINGS: Artifacts from overlying clothing and other extrinsic artifacts partially limit radiographic detail. Severe degenerative changes of the right knee with joint space narrowing, osteophytes, sclerotic changes and some flattening/remodeling most notably in the medial compartment greater than patellofemoral greater than lateral compartments, Kellgren Zackery grade 4. Mild knee joint effusion. Mild vascular calcifications posteriorly. No radiographic evidence of displaced fracture, dislocation or high attenuation foreign body. IMPRESSION: Severe degenerative changes of the right knee. Dictated by: Omi Kelly M.D. on 12/21/2024 at 11:40 Approved by: Omi Kelly M.D. on 12/21/2024 at 11:41
== END ==
PROVIDERS: PCP Family Medicine; Referring Provider Family Medicine; Visit Provider Family Medicine
DX: M25.461 Effusion, right knee (principal); M25.561 Pain in right knee; G89.29 Other chronic pain
CPT/HCPCS: 73562

== ENCOUNTER → 2024-12-22 08:34 | Outpatient (CLI) | payer MEDICARE, OTHER, SELFPAY ==
[2024-12-22 09:40] LABS: Add Manual Diff / Slide Review NO; Basophils Absolute Auto 0 /uL (0-100); Basophils Percent Auto 0.3 % (0-2); Eosinophils Absolute Auto 200 /uL (0-450); Hematocrit 49.4 % (41-53); Hemoglobin 16.6 g/dL (13.5-17.5); Lymphocytes Absolute Auto 2500 /uL (1100-4500); Lymphocytes Percent Auto 33.3 % (25-40); Mean Corpuscular HGB Conc 33.5 % (30-36); Mean Corpuscular Hemoglobin 31.4 PG (26-34); Mean Corpuscular Volume 93.9 fL (80-100); Monocytes Absolute Auto 900 /uL (0-900); Monocytes Percent Auto 11.9 % (3-14); Neutrophils Absolute Auto 4000 /uL (1500-7000); Neutrophils Percent Auto 52.5 % (50-75); Platelet Count 130 X10^3/uL (150-400); Red Blood Cell Count 5.27 X10^6/uL (4.5-5.9); Red Cell Distribution Width 15.6 % (11.6-14.8); White Blood Cell Count 7.6 X10^3/uL (4.5-11.0)
[2024-12-22 10:06] LABS: Alanine Aminotransferase 22 IU/L (<50); Albumin Globulin Ratio 1.7 (1.0-2.8); Alkaline Phosphatase 74 U/L (38-126); Aspartate Aminotransferase 24 IU/L (17-59); BUN Creatinine Ratio 21.9 (6-22); Bilirubin Total 0.7 mg/dL (0.2-1.3); Blood Urea Nitrogen 21 mg/dL (9-20); Calcium 9.3 mg/dL (8.4-10.2); Carbon Dioxide 26 mmol/L (22-32); Chloride 101 mmol/L (98-107); Cholesterol 130 mg/dL (140-199); Estimated Glomerular Filt Rate > 60 mL/min (>60); Globulin 2.4 g/dL (1.7-4.1); Glucose 151 mg/dL (70-99); HDL Cholesterol 28 mg/dL (40-60); HEMOLYSIS < 15 (0-50); LDL Cholesterol Calculated 70 mg/dL (<100); Sodium 135 mmol/L (137-145); Total Protein 6.4 g/dL (6.3-8.2); Triglycerides 161 mg/dL (35-150)
[2024-12-22 10:07] LABS: Hemoglobin A1C% w Est Avg Glu 7.5 % (4.0-6.0)
[2024-12-22 10:33] LABS: Thyroid Stimulating Hormone 1.63 uIU/mL (0.47-4.68)
== END ==
LOC: LAB 08:36
PROVIDERS: PCP Family Medicine; Referring Provider Family Medicine; Visit Provider Family Medicine
DX: E03.9 Hypothyroidism, unspecified (principal); Z13.1 Encounter for screening for diabetes mellitus; N40.1 Benign prostatic hyperplasia with lower urinary tract symptoms; R33.8 Other retention of urine; Z13.0 Encounter for screening for diseases of the blood and blood-forming organs and certain disorders involving the immune mechanism; Z13.220 Encounter for screening for lipoid disorders; Z13.228 Encounter for screening for other metabolic disorders
CPT/HCPCS: 36415; 80053; 80061; 83036; 84153; 84154; 84439; 84443; 85025

== ENCOUNTER 2025-01-13 10:32 | Emergency (ER) | payer MEDICARE, OTHER, SELFPAY ==
[2025-01-13] VITALS (22 sets, daily range): BP systolic 85–153; BP diastolic 53–95; PULSE 63–144; RESP 13–21; TEMP 36.7; O2SAT 91–96
--- NOTE | 2025-01-13 10:58 | DI.RAD.S_ITS ---
PROCEDURE: XR CHEST 1V INDICATIONS: Chest Pain TECHNIQUE: One view of the chest was acquired. COMPARISON: [facility], CR, XR CHEST 2V, 07/07/2024, 9:52. [facility], CR, XR CHEST 1V, 02/16/2024, 8:40. [facility], CR, XR CHEST 1V, 02/15/2023, 9:19. FINDINGS: Surgical changes and devices: None. Lungs and pleura: Stable chronic reticulations in both lungs. No dense consolidation. No pleural effusions or pneumothorax. Mediastinum: Mediastinal contours appear normal. Heart size is normal. Bones and chest wall: No suspicious bony lesions. Overlying soft tissues appear unremarkable. IMPRESSION: Stable chronic reticular opacities. No dense consolidation. Approved by: Ayaan Vásquez M.D. on 01/13/2025 at 13:17
[2025-01-13] MEDS: ASPIRIN 81 MG CHEW TAB 324 MG PO (11:02)
--- NOTE | 2025-01-13 11:02 | EKG_ITS ---
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
[2025-01-13 11:32] LABS: PTT Partial Thromboplastin Tim 32 SECONDS (25.1-36.5)
[2025-01-13 11:33] LABS: Add Manual Diff / Slide Review NO; Hematocrit 50.6 % (41-53); Hemoglobin 17.2 g/dL (13.5-17.5); Lymphocytes Absolute Auto 2900 /uL (1100-4500); Mean Corpuscular HGB Conc 33.9 % (30-36); Mean Corpuscular Hemoglobin 31.8 PG (26-34); Mean Corpuscular Volume 93.7 fL (80-100); Platelet Count 131 X10^3/uL (150-400)
[2025-01-13 11:34] LABS: Alanine Aminotransferase 22 IU/L (<50); Albumin 4.2 g/dL (3.5-5.0); Albumin Globulin Ratio 1.4 (1.0-2.8); Alkaline Phosphatase 65 U/L (38-126); Blood Urea Nitrogen 13 mg/dL (9-20); Calcium 9.0 mg/dL (8.4-10.2); Carbon Dioxide 21 mmol/L (22-32); Chloride 110 mmol/L (98-107); Creatine Kinase 54 U/L (55-170); Estimated Glomerular Filt Rate > 60 mL/min (>60); Globulin 2.9 g/dL (1.7-4.1); Glucose 112 mg/dL (70-99); HEMOLYSIS < 15 (0-50); Lipase 250 U/L (23-300); Magnesium 2.2 mg/dL (1.6-2.3); Potassium 4.6 mmol/L (3.4-5.1); Sodium 138 mmol/L (137-145); Total Protein 7.1 g/dL (6.3-8.2)
--- NOTE | 2025-01-13 11:43 | ED.WEAKNESS ---
HPI - Weakness General Chief complaint: Weakness Stated complaint: SOB, Very tired X 1 day Time Seen by Provider: 01/13/25 11:16 Source: patient Mode of arrival: Ambulatory History of Present Illness HPI Narrative: 69-year-old gentleman history of AAA repair and also hypertension and femoral artery hypertension diabetes presents with heart palpitation dyspnea on exertion shortness of breath after walking a short period of time that started yesterday after doing yd work and exercise. Patient denies active chest pain, leg pain , or worsening leg swelling or increased weight gain, cough, recent long distance travel or any history of DVT or PE. Than what is stated 14 point review of systems. Related Data Home Medications ?Medication ?Instructions ?Recorded ?Confirmed [[place]] ##0 11/05/16 12/30/24 ascorbic acid (vitamin C) 500 mg 1,000 mg PO QDAY ##0 11/05/16 12/30/24 tablet hydrochlorothiazide 25 mg tablet 25 mg PO DAILY 07/07/24 12/30/24 naproxen 500 mg tablet 500 mg PO DAILY 07/07/24 12/30/24 rosuvastatin 10 mg tablet 10 mg PO ONCE PM 07/07/24 12/30/24 Previous Rx's ?Medication ?Instructions ?Recorded clotrimazole 1 % topical cream 1 gm topical BID ##30 11/05/16 furosemide 20 mg tablet (Lasix) 20 mg PO DAILY #7 tabs 02/15/23 losartan 50 mg tablet 75 mg (1.5 x 50 mg) PO DAILY #30 02/16/24 tabs amoxicillin 875 mg-potassium 1 tab PO BID #10 tabs 07/07/24 clavulanate 125 mg tablet azithromycin 250 mg tablet See Rx Instructions PO .COMPLEX #6 07/07/24 tabs benzonatate 200 mg capsule 200 mg PO BID PRN cough #28 caps 07/07/24 apixaban 5 mg tablet (Eliquis) 5 mg PO BID #60 tabs 01/13/25 diltiazem HCl 120 mg capsule,24 120 mg PO DAILY #30 caps 01/13/25 hr,extended release Allergies Allergy/AdvReac Type Severity Reaction Status Date / Time codeine (CODEINE) Allergy Intermediate NAUSEA Verified 01/13/25 10:54 Review of Systems Review of Systems ROS Unobtainable: All systems reviewed & are unremarkable except as noted in HPI and below Patient History Medical History (Updated 01/13/25 @ 14:11 by Maynor Ta DO) Patient denies medical problems Social History lives independently: Yes Smoking Status: Former smoker Smoking Status: Former smoker tobacco type: vaping alcohol intake frequency: 0-2 drinks per day Exam Narrative Exam Narrative: GENERAL: 69 year old patient appears stated age. Well-developed patient, in mild distress. HEAD: Atraumatic. Normocephalic. EYES: Pupils equal round and reactive. Extraocular motions intact. No scleral icterus. No injection or drainage. ENT: Nose without bleeding, purulent drainage. Throat without erythema, tonsillar hypertrophy or exudate. Airway patent. NECK: Trachea midline. Non tender CARDIOVASCULAR: Tachycardic irregularly irregular and rhythm without murmurs, gallops, or rubs. RESPIRATORY: Clear to auscultation. Breath sounds equal bilaterally. No wheezes, rales, or rhonchi. GASTROINTESTINAL: Abdomen soft, non-tender, nondistended. EXTREMITIES: No edema or joint tenderness. BACK: Nontender without deformity or crepitance. No flank tenderness. NEURO: AOx3. SKIN: No rash or erythema of visible areas Initial Vital Signs Initial Vital Signs: Vital Signs Temperature 98.0 F 01/13/25 10:54 Pulse Rate 73 01/13/25 10:54 Respiratory Rate 17 01/13/25 10:54 Blood Pressure 153/95 H 01/13/25 10:54 Pulse Oximetry 94 01/13/25 10:54 Oxygen Delivery Method Room Air 01/13/25 10:54 Course Orders Ordered: ED Orders 01/13/25 10:58 XR chest 1V Stat EKG-12 Lead Stat 01/13/25 11:06 Complete Blood Count AUTO DIFF Stat Comprehensive Metabolic Panel Stat Lipase Stat Magnesium Stat NT-proBNP (BNP-Adult 18+) Stat PTT Partial Thromboplastin Jadiel Stat Prothrombin Time INR Stat Troponin & CK Cardiac Panel Stat 01/13/25 11:48 CT angio chest PE protocol Stat Discontinued Medications Aspirin (Aspirin 81 Mg Chew Tab) 324 mg PO NOW ONE Stop: 01/13/25 10:59 Last Admin: 01/13/25 11:02 Dose: 243 mg Documented By: BEN Diltiazem HCl (Diltiazem 25 Mg/5 Ml Sdv) 25 mg IV NOW ONE Stop: 01/13/25 11:50 Last Admin: 01/13/25 12:09 Dose: 25 mg Documented By: BRADLEY Vital Signs Vital signs: Vital Signs - 8 hr 01/13/25 10:54 01/13/25 11:30 01/13/25 11:31 Temperature 98.0 F Pulse Rate 73 144 H Respiratory Rate 17 21 Blood Pressure 153/95 H Pulse Oximetry 94 92 95 Oxygen Delivery Method Room Air 01/13/25 11:31 01/13/25 12:09 01/13/25 12:11 Temperature Pulse Rate 140 H 135 H Respiratory Rate 21 Blood Pressure 147/76 H 119/69 Pulse Oximetry 95 Oxygen Delivery Method 01/13/25 12:12 01/13/25 12:12 01/13/25 12:16 Temperature Pulse Rate 139 H 92 H Respiratory Rate 16 18 Blood Pressure 125/84 Pulse Oximetry 94 95 Oxygen Delivery Method 01/13/25 12:16 01/13/25 12:30 01/13/25 12:31 Temperature Pulse Rate 72 78 Respiratory Rate 13 13 Blood Pressure 119/69 Pulse Oximetry 93 93 Oxygen Delivery Method 01/13/25 12:31 01/13/25 12:35 01/13/25 12:35 Temperature Pulse Rate 78 Respiratory Rate 15 Blood Pressure 91/55 L 101/61 Pulse Oximetry 92 Oxygen Delivery Method 01/13/25 12:40 01/13/25 12:40 01/13/25 12:51 Temperature Pulse Rate 74 Respiratory Rate 19 Blood Pressure 103/69 85/53 L Pulse Oximetry 94 Oxygen Delivery Method 01/13/25 12:51 Temperature Pulse Rate 78 Respiratory Rate 19 Blood Pressure Pulse Oximetry 91 Oxygen Delivery Method MDM - Weakness Lab Data 01/13/25 11:06 01/13/25 11:06 Labs: Lab Results 01/13/25 Range/Units 11:06 WBC 9.2 (4.5-11.0) X10^3/uL RBC 5.40 (4.5-5.9) X10^6/uL Hgb 17.2 (13.5-17.5) g/dL Hct 50.6 (41-53) % MCV 93.7 (80-100) fL MCH 31.8 (26-34) PG MCHC 33.9 (30-36) % RDW 15.6 H (11.6-14.8) % Plt Count 131 L (150-400) X10^3/uL Neut % (Auto) 56.9 (50-75) % Lymph % (Auto) 31.5 (25-40) % [place] % (Auto) 9.9 (3-14) % Eos % (Auto) 1.1 L (2-4) % Baso % (Auto) 0.6 (0-2) % Neut # (Auto) 5200 (8733-5705) /uL Lymph # (Auto) 2900 (9992-1137) /uL [place] # (Auto) 900 (0-900) /uL Eos # (Auto) 100 (0-450) /uL Baso # (Auto) 100 (0-100) /uL PT 12.4 (9.4-12.5) SECONDS INR 1.1 (0.9-1.3) APTT 32 (25.1-36.5) SECONDS Sodium 138 (137-145) mmol/L Potassium 4.6 (3.4-5.1) mmol/L Chloride 110 H (98-107) mmol/L Carbon Dioxide 21 L (22-32) mmol/L BUN 13 (9-20) mg/dL Creatinine 0.87 (0.66-1.25) mg/dL Estimated GFR > 60 (>60) mL/min BUN/Creatinine Ratio 14.9 (6-22) Glucose 112 H (70-99) mg/dL Calcium 9.0 (8.4-10.2) mg/dL Magnesium 2.2 (1.6-2.3) mg/dL Total Bilirubin 0.8 (0.2-1.3) mg/dL AST 26 (17-59) IU/L ALT 22 (<50) IU/L Alkaline Phosphatase 65 (38-126) U/L Total Creatine Kinase 54 L (55-170) U/L Troponin I < 0.012 (0.01-0.034) ng/mL NT-Pro-B Natriuret Pep 2580 H (<125) pg/mL Total Protein 7.1 (6.3-8.2) g/dL Albumin 4.2 (3.5-5.0) g/dL Globulin 2.9 (1.7-4.1) g/dL Albumin/Globulin Ratio 1.4 (1.0-2.8) Lipase 250 (23-300) U/L Imaging Data CT scan - chest: Radiologist Impression: [address] [address] [address] Scan Report Signed Patient: Zeferino Connelly MR#: [id number] : 1955 Acct:[id number] Age/Sex: 69 / M Date of Service: 01/13/25 Loc: ED Accession Number: [id number] Procedure: CT angio chest PE protocol Ordering Provider: Maynor Ta D.O. PROCEDURE: CT ANGIO CHEST PE PROTOCOL INDICATIONS: chest pain sob TECHNIQUE: After the administration of intravenous contrast, 2 mm thick sections acquired from the pulmonary apices to the posterior costophrenic angles. 3-dimensional maximum intensity projection (MIP) coronal and sagittal reformats were then acquired through the thorax. For radiation dose reduction, the following was used: automated exposure control, adjustment of mA and/or kV according to patient size. COMPARISON: None. FINDINGS: Image quality: Diagnostic. Pulmonary arteries: Main pulmonary artery measures 3.3 cm in diameter, which can be seen with pulmonary arterial hypertension. No intraluminal filling defects to suggest central pulmonary embolism. Lower Neck: No enlarged lymph nodes. Thyroid: No thyroid nodules which require sonographic follow up, per consensus guidelines. Axillae: No enlarged lymph nodes. Chest Wall: Mild bilateral gynecomastia. Bones: Unremarkable. Lungs and Pleura: No pneumothorax or pleural effusions. Bilateral reticulations and traction bronchiectasis with a few larger confluent cavities peripherally. Probable superimposed emphysematous changes. No consolidation or suspicious nodules. Heart: Heart size is enlarged. No pericardial effusion. Moderate to severe coronary artery calcifications. Thoracic Vessels: Ascending thoracic aorta measures approximately 3.9 x 4.0 cm at the level of the right pulmonary artery.. Mediastinum and Colleen: No enlarged lymph nodes. Esophagus: No wall thickening. No hiatal hernia. Upper Abdomen: Visualized upper abdomen solid organs and bowel loops appear normal. IMPRESSION: 1. No acute pulmonary embolus. 2. Main pulmonary artery measures 3.3 cm in diameter, which can be seen in setting of pulmonary arterial hypertension. 3. Mild cardiomegaly. Moderate to severe coronary artery calcifications. 4. Diffuse bilateral pulmonary reticulations and traction bronchiectasis, suspicious for chronic interstitial lung disease. Probable superimposed centrilobular emphysema. ECG Data Interpretation: Afib HR 81 SC undetermined QRS [address]-t wave change NO previous ekg to compare MDM Narrative Medical decision making narrative: Vital signs nurse triage note medication list previous ER visits in all imaging studies reviewed. BNP 2580 troponin normal. CTA showed no PE pulmonary artery hypertension. All cardiomegaly. Moderate to severe coronary artery calcification. Diffuse bilateral pulmonary reticulations and traction bronchiectasis suspicious for suspicious for chronic interstitial lung disease. Patient given diltiazem 25 mg here and Eliquis 5 mg will be sent home on both medications and to follow up with PCP in 1 week. Differential diagnosis PE STEMI NSTEMI CHF AFib new onset. Patient was offered admission but declined on its go home instead. Discharge Plan Departure Patient Disposition: Home Clinical Impression: Atrial fibrillation Qualifiers: Atrial fibrillation type: longstanding persistent Qualified Code(s): I48.11 - Longstanding persistent atrial fibrillation Instructions: DI for Atrial Fibrillation Activity Restrictions/Additional Instructions: Return with new or worsening symptoms. Take your medicines as directed. Follow up PCP in 1 week for re-evaluation. Prescriptions: New diltiazem HCl 120 mg capsule,extended release 24hr 120 mg PO DAILY Qty: 30 0RF Eliquis 5 mg tablet 5 mg PO BID Qty: 60 0RF No Action hydrochlorothiazide 25 mg tablet 25 mg PO DAILY naproxen 500 mg tablet 500 mg PO DAILY rosuvastatin 10 mg tablet 10 mg PO ONCE PM benzonatate 200 mg capsule 200 mg PO BID PRN (Reason: cough) Qty: 28 0RF amoxicillin-pot clavulanate 875-125 mg tablet 1 tab PO BID Qty: 10 0RF azithromycin 250 mg tablet See Rx Instructions PO .COMPLEX Qty: 6 0RF Rx Instructions: For 250 mg dose pack: take 500 mg today (day 1), then 250 mg for 4 days (days 2-5) PO ascorbic acid (vitamin C) 500 MG tablet 1,000 mg PO QDAY Qty: 0 [saw [place]met[place]] Qty: 0 clotrimazole 1 % cream 1 gm Topical BID Qty: 30 0RF furosemide [Lasix] 20 mg tablet 20 mg PO DAILY Qty: 7 0RF losartan 50 mg tablet 75 mg PO DAILY Qty: 30 0RF Referrals: Edilma Rey MD [Primary Care Provider, Family Practice] Stand Alone Forms: Patient Portal/API
[2025-01-13 11:46] LABS: NT-proBNP (BNP-Adult 18+) 2580 pg/mL (<125); Troponin I < 0.012 ng/mL (0.01-0.034)
--- NOTE | 2025-01-13 11:48 | DI.CT.S_ITS ---
PROCEDURE: CT ANGIO CHEST PE PROTOCOL INDICATIONS: chest pain sob TECHNIQUE: After the administration of intravenous contrast, 2 mm thick sections acquired from the pulmonary apices to the posterior costophrenic angles. 3-dimensional maximum intensity projection (MIP) coronal and sagittal reformats were then acquired through the thorax. For radiation dose reduction, the following was used: automated exposure control, adjustment of mA and/or kV according to patient size. COMPARISON: None. FINDINGS: Image quality: Diagnostic. Pulmonary arteries: Main pulmonary artery measures 3.3 cm in diameter, which can be seen with pulmonary arterial hypertension. No intraluminal filling defects to suggest central pulmonary embolism. Lower Neck: No enlarged lymph nodes. Thyroid: No thyroid nodules which require sonographic follow up, per consensus guidelines. Axillae: No enlarged lymph nodes. Chest Wall: Mild bilateral gynecomastia. Bones: Unremarkable. Lungs and Pleura: No pneumothorax or pleural effusions. Bilateral reticulations and traction bronchiectasis with a few larger confluent cavities peripherally. Probable superimposed emphysematous changes. No consolidation or suspicious nodules. Heart: Heart size is enlarged. No pericardial effusion. Moderate to severe coronary artery calcifications. Thoracic Vessels: Ascending thoracic aorta measures approximately 3.9 x 4.0 cm at the level of the right pulmonary artery.. Mediastinum and Colleen: No enlarged lymph nodes. Esophagus: No wall thickening. No hiatal hernia. Upper Abdomen: Visualized upper abdomen solid organs and bowel loops appear normal. IMPRESSION: 1. No acute pulmonary embolus. 2. Main pulmonary artery measures 3.3 cm in diameter, which can be seen in setting of pulmonary arterial hypertension. 3. Mild cardiomegaly. Moderate to severe coronary artery calcifications. 4. Diffuse bilateral pulmonary reticulations and traction bronchiectasis, suspicious for chronic interstitial lung disease. Probable superimposed centrilobular emphysema. Approved by: Ayaan Vásquez M.D. on 01/13/2025 at 12:57
[2025-01-13 12:06] LABS: INR 1.1 (0.9-1.3); Prothrombin Time 12.4 SECONDS (9.4-12.5)
--- NOTE | 2025-01-13 13:27 | EKG_ITS ---
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
[2025-01-13] MEDS: APIXABAN 5 MG TABLET PO (14:14)
== END 2025-01-13 14:25 | disposition home or self-care (01) ==
PROVIDERS: Emergency Provider Family Medicine; PCP Family Medicine
DX: I48.11 Longstanding persistent atrial fibrillation (principal); R07.9 Chest pain, unspecified; Z79.01 Long term (current) use of anticoagulants
CPT/HCPCS: 36415; 71045; 71275; 80053; 82550; 83690; 83735; 83880; 84484; 85025; 85610; 85730; 93005; 93010; 96374; 99284; Q9967

== ENCOUNTER → 2025-03-31 09:35 | Outpatient (CLI) | payer MEDICARE, OTHER, SELFPAY ==
[2025-03-31 10:56] LABS: Hemoglobin A1C% w Est Avg Glu 6.1 % (4.0-6.0)
[2025-03-31 11:10] LABS: Cholesterol 202 mg/dL (140-199); HDL Cholesterol 35 mg/dL (40-60); Triglycerides 215 mg/dL (35-150)
== END ==
PROVIDERS: PCP Family Medicine; Referring Provider Family Medicine; Visit Provider Family Medicine
DX: E11.9 Type 2 diabetes mellitus without complications (principal)
CPT/HCPCS: 36415; 80061; 83036